=== PATIENT | male | born 1950 | race Caucasian/White ===

== ENCOUNTER → 2019-10-02 07:51 | Outpatient (BNVA) | payer MEDICARE, SELFPAY | PROVIDERS: Family Provider Nurse Practitioner Family; PCP Nurse Practitioner Family; Visit Provider Anesthesiology | DX: G89.29 Other chronic pain (principal); M51.36 Other intervertebral disc degeneration, lumbar region; M48.061 Spinal stenosis, lumbar region without neurogenic claudication; G99.2 Myelopathy in diseases classified elsewhere; M48.02 Spinal stenosis, cervical region; M19.011 Primary osteoarthritis, right shoulder; M19.012 Primary osteoarthritis, left shoulder; M79.651 Pain in right thigh; M79.652 Pain in left thigh; Z79.891 Long term (current) use of opiate analgesic | CPT/HCPCS: 99214 ==

== ENCOUNTER → 2019-11-28 07:51 | Outpatient (BNVA) | payer MEDICARE, SELFPAY | PROVIDERS: Family Provider Nurse Practitioner Family; PCP Nurse Practitioner Family; Visit Provider Anesthesiology | DX: G89.29 Other chronic pain (principal); M48.02 Spinal stenosis, cervical region; G99.2 Myelopathy in diseases classified elsewhere; M19.011 Primary osteoarthritis, right shoulder; M19.012 Primary osteoarthritis, left shoulder; M51.36 Other intervertebral disc degeneration, lumbar region; M48.061 Spinal stenosis, lumbar region without neurogenic claudication; F17.290 Nicotine dependence, other tobacco product, uncomplicated; Z79.891 Long term (current) use of opiate analgesic | CPT/HCPCS: 99214 ==

== ENCOUNTER → 2020-03-27 08:53 | Outpatient (BNVA) | payer MEDICARE, SELFPAY | PROVIDERS: Family Provider Nurse Practitioner Family; PCP Family Medicine; Visit Provider Nurse Practitioner | DX: G89.29 Other chronic pain (principal); M54.41 Lumbago with sciatica, right side; M51.36 Other intervertebral disc degeneration, lumbar region; M54.2 Cervicalgia; M54.9 Dorsalgia, unspecified; F17.290 Nicotine dependence, other tobacco product, uncomplicated; Z79.891 Long term (current) use of opiate analgesic; Z71.6 Tobacco abuse counseling | CPT/HCPCS: 99213 ==

== ENCOUNTER → 2020-05-29 08:50 | Outpatient (BNVA) | payer MEDICARE, SELFPAY | PROVIDERS: Family Provider Nurse Practitioner Family; PCP Family Medicine; Visit Provider Nurse Practitioner | DX: G89.29 Other chronic pain (principal); M48.02 Spinal stenosis, cervical region; M48.061 Spinal stenosis, lumbar region without neurogenic claudication; M51.36 Other intervertebral disc degeneration, lumbar region; M19.011 Primary osteoarthritis, right shoulder; M19.012 Primary osteoarthritis, left shoulder; M54.9 Dorsalgia, unspecified; G99.2 Myelopathy in diseases classified elsewhere; F17.290 Nicotine dependence, other tobacco product, uncomplicated; Z79.891 Long term (current) use of opiate analgesic | CPT/HCPCS: 99213; 99214 ==

== ENCOUNTER → 2020-06-27 09:59 | Outpatient (BNVA) | payer MEDICARE, SELFPAY | PROVIDERS: Family Provider Nurse Practitioner Family; PCP Family Medicine; Visit Provider Anesthesiology | DX: G89.29 Other chronic pain (principal); M48.02 Spinal stenosis, cervical region; G99.2 Myelopathy in diseases classified elsewhere; M51.36 Other intervertebral disc degeneration, lumbar region; M48.061 Spinal stenosis, lumbar region without neurogenic claudication; F17.290 Nicotine dependence, other tobacco product, uncomplicated; Z79.891 Long term (current) use of opiate analgesic; Z71.6 Tobacco abuse counseling | CPT/HCPCS: 99214 ==

== ENCOUNTER → 2020-08-04 10:26 | Outpatient (BNVA) | payer MEDICARE, SELFPAY | PROVIDERS: Family Provider Nurse Practitioner Family; PCP Family Medicine; Visit Provider Specialist | DX: M19.011 Primary osteoarthritis, right shoulder (principal); M19.012 Primary osteoarthritis, left shoulder | CPT/HCPCS: 73030 ==

== ENCOUNTER → 2020-08-27 09:11 | Outpatient (BNVA) | payer MEDICARE, SELFPAY | PROVIDERS: Family Provider Nurse Practitioner Family; PCP Family Medicine; Visit Provider Anesthesiology | DX: G89.29 Other chronic pain (principal); M48.02 Spinal stenosis, cervical region; M19.011 Primary osteoarthritis, right shoulder; M19.012 Primary osteoarthritis, left shoulder; M51.36 Other intervertebral disc degeneration, lumbar region; M48.061 Spinal stenosis, lumbar region without neurogenic claudication; M54.9 Dorsalgia, unspecified; G99.2 Myelopathy in diseases classified elsewhere; F17.290 Nicotine dependence, other tobacco product, uncomplicated; Z79.891 Long term (current) use of opiate analgesic; Z71.6 Tobacco abuse counseling | CPT/HCPCS: 99214 ==

== ENCOUNTER → 2020-10-24 09:15 | Outpatient (BNVA) | payer MEDICARE, SELFPAY | PROVIDERS: Family Provider Nurse Practitioner Family; PCP Family Medicine; Visit Provider Anesthesiology | DX: G89.29 Other chronic pain (principal); G99.2 Myelopathy in diseases classified elsewhere; M51.36 Other intervertebral disc degeneration, lumbar region; M48.061 Spinal stenosis, lumbar region without neurogenic claudication; M54.9 Dorsalgia, unspecified; M48.02 Spinal stenosis, cervical region; M19.011 Primary osteoarthritis, right shoulder; M19.012 Primary osteoarthritis, left shoulder; F17.290 Nicotine dependence, other tobacco product, uncomplicated; Z79.891 Long term (current) use of opiate analgesic | CPT/HCPCS: 99214 ==

== ENCOUNTER → 2020-12-19 10:23 | Outpatient (BNVA) | payer MEDICARE, SELFPAY | PROVIDERS: Family Provider Nurse Practitioner Family; PCP Family Medicine; Visit Provider Nurse Practitioner | DX: G89.29 Other chronic pain (principal); M51.36 Other intervertebral disc degeneration, lumbar region; M54.9 Dorsalgia, unspecified; M48.02 Spinal stenosis, cervical region; M19.011 Primary osteoarthritis, right shoulder; M19.012 Primary osteoarthritis, left shoulder; G99.2 Myelopathy in diseases classified elsewhere; F17.210 Nicotine dependence, cigarettes, uncomplicated; Z79.891 Long term (current) use of opiate analgesic; Z71.6 Tobacco abuse counseling | CPT/HCPCS: 99213; 99214 ==

== ENCOUNTER → 2021-02-26 08:37 | Outpatient (BNVA) | payer MEDICARE, SELFPAY | PROVIDERS: Family Provider Nurse Practitioner Family; PCP Family Medicine; Visit Provider Nurse Practitioner | DX: G89.29 Other chronic pain (principal); M51.36 Other intervertebral disc degeneration, lumbar region; M48.061 Spinal stenosis, lumbar region without neurogenic claudication; M48.02 Spinal stenosis, cervical region; M19.011 Primary osteoarthritis, right shoulder; M19.012 Primary osteoarthritis, left shoulder; G99.2 Myelopathy in diseases classified elsewhere; F17.210 Nicotine dependence, cigarettes, uncomplicated; Z79.891 Long term (current) use of opiate analgesic; Z71.6 Tobacco abuse counseling | CPT/HCPCS: 99213; 99214 ==

== ENCOUNTER → 2021-04-22 08:47 | Outpatient (BNVA) | payer MEDICARE, SELFPAY | PROVIDERS: Family Provider Nurse Practitioner Family; PCP Family Medicine; Visit Provider Nurse Practitioner | DX: G89.29 Other chronic pain (principal); M51.36 Other intervertebral disc degeneration, lumbar region; M48.061 Spinal stenosis, lumbar region without neurogenic claudication; M48.02 Spinal stenosis, cervical region; M19.011 Primary osteoarthritis, right shoulder; M19.012 Primary osteoarthritis, left shoulder; G99.2 Myelopathy in diseases classified elsewhere; F17.290 Nicotine dependence, other tobacco product, uncomplicated; Z79.891 Long term (current) use of opiate analgesic; Z71.6 Tobacco abuse counseling | CPT/HCPCS: 99213; 99214 ==

== ENCOUNTER → 2021-06-26 08:09 | Outpatient (BNVA) | payer MEDICARE, SELFPAY | PROVIDERS: Family Provider Nurse Practitioner Family; PCP Family Medicine; Visit Provider Anesthesiology | DX: Z02.89 Encounter for other administrative examinations (principal); G89.29 Other chronic pain; M51.36 Other intervertebral disc degeneration, lumbar region; M48.061 Spinal stenosis, lumbar region without neurogenic claudication; M48.02 Spinal stenosis, cervical region; G99.2 Myelopathy in diseases classified elsewhere; F17.210 Nicotine dependence, cigarettes, uncomplicated; Z79.891 Long term (current) use of opiate analgesic | CPT/HCPCS: 99214 ==

== ENCOUNTER → 2021-09-15 08:32 | Outpatient (BNVA) | payer MEDICARE, SELFPAY | PROVIDERS: Family Provider Nurse Practitioner Family; PCP Family Medicine; Visit Provider Anesthesiology | DX: G89.29 Other chronic pain (principal); M51.36 Other intervertebral disc degeneration, lumbar region; M48.02 Spinal stenosis, cervical region; G99.2 Myelopathy in diseases classified elsewhere; M48.061 Spinal stenosis, lumbar region without neurogenic claudication; F17.200 Nicotine dependence, unspecified, uncomplicated; Z79.891 Long term (current) use of opiate analgesic | CPT/HCPCS: 99214 ==

== ENCOUNTER 2021-10-19 12:47 | Outpatient (CLI) | payer MEDICARE, SELFPAY ==
--- NOTE | 2021-10-19 13:26 | XR_ITS ---
WS: [id number] XR cervical spine fl/ex [id number] REASON FOR EXAM: SPONDYLOLISTHESIS CERVICAL REGION FINDINGS: There is straightening of the normal lordosis of the cervical. No compression deformity or other focal cervical vertebral body lesion. Moderate narrowing of the C4-C5 with more severe narrowing of the C5-C6 and C6-C7 disc spaces with mo derate anterior osteophytes. 3 mm of anterior subluxation of C3 in relation to C4 in the neutral position. The subluxation may inc rease slightly with flexion. Mild degenerative changes in the facet joints C4-T1. XR/XR cervical spine fl/ex [id number] IMPRESSION: Multilevel degenerative spondylosis. The subluxation of C3 on C4 has developed since the MRI of the cervical spine 08/23/2017.
== END 2021-10-19 12:48 | disposition home or self-care (01) ==
PROVIDERS: PCP Family Medicine; Visit Provider Nurse Practitioner
DX: M43.12 Spondylolisthesis, cervical region (principal); S13.140A Subluxation of C3/C4 cervical vertebrae, initial encounter; X58.XXXA Exposure to other specified factors, initial encounter
CPT/HCPCS: 72040

== ENCOUNTER 2021-12-01 20:00 | Outpatient (CLI) | payer MEDICARE, SELFPAY | END 2021-12-01 20:01 | disposition home or self-care (01) | LOC: SLEEP 12-02 06:30 | PROVIDERS: PCP Family Medicine; Visit Provider Anesthesiology Pain Medicine | DX: G47.10 Hypersomnia, unspecified (principal); R06.83 Snoring; R53.83 Other fatigue | CPT/HCPCS: 95810 ==

== ENCOUNTER → 2022-03-04 09:54 | Outpatient (BNVA) | payer MEDICARE, SELFPAY | PROVIDERS: PCP Family Medicine; Visit Provider Specialist | DX: M19.011 Primary osteoarthritis, right shoulder (principal); M19.012 Primary osteoarthritis, left shoulder; Z71.89 Other specified counseling | CPT/HCPCS: 20610; J1100; J2795; J3301 ==

== ENCOUNTER → 2022-06-10 09:57 | Outpatient (BNVA) | payer MEDICARE, SELFPAY | PROVIDERS: PCP Family Medicine; Visit Provider Specialist | DX: M19.011 Primary osteoarthritis, right shoulder (principal); M19.012 Primary osteoarthritis, left shoulder | CPT/HCPCS: 20610; J1100; J2795; J3301 ==

== ENCOUNTER → 2022-06-22 16:01 | Outpatient (BNVA) | payer MEDICARE, SELFPAY | PROVIDERS: PCP Family Medicine; Visit Provider Internal Medicine | DX: R53.83 Other fatigue (principal); D64.9 Anemia, unspecified; I25.10 Atherosclerotic heart disease of native coronary artery without angina pectoris; E78.5 Hyperlipidemia, unspecified; J44.9 Chronic obstructive pulmonary disease, unspecified | CPT/HCPCS: 80053; 82607; 83550; 84443; 85025 ==

== ENCOUNTER 2022-08-24 08:14 | Outpatient (CLI) | payer MEDICARE, SELFPAY ==
[2022-08-24 08:37] VITALS: BMI 22.2
--- NOTE | 2022-08-24 08:39 | NMCV_ITS ---
NM kylie perf SPECT r/s* [id number] Owen Harris Age: 72 Gender: M : 1950 Exam Date: 08/24/2022 08:39 Ordering Phys: Ej Grajeda MD Technologist: JAYLAN Villasenor Exam Location: [facility] Indications: ATHEROSCLEROTIC HEART DISEASE OF [place] CORONARY ARTERY STRESS TEST Please see separate stress test report in [facility] for full findings IMAGE PROTOCOL Rest/Stress 1 Lexiscan Day Radiopharmaceutical Dose (mCi) Administration Site Administered by Rest: Tc-99m 10.8 IV JAYLAN Mccallum Sestamibi Stress:Tc-99m 32.3 IV JAYLAN Mccallum Sestamibi Rest: 24-Aug-2022 60 Discovery 630 Stress: 24-Aug-2022 30 Discovery 630 0.4mg Lexiscan. Images obtained in supine and prone position. SPECT RESULTS Technical Quality: Excellent Raw Data Analysis: Normal Image Corrections: No attenuation or motion correction applied Summed Stress Score: 2 Summed Rest Score: 5 Summed Difference Score: 0 PERFUSION FINDINGS Small sized perfusion abnormality of mild severity of apical lateral, apical anterior, apical inferior and apical ramos on rest images with improved tracer uptake in apical lateral and apical inferior ramos on stress images. This is suggestive of attenuation artifact. FUNCTIONAL RESULTS (calculated via Gated SPECT) Stress Image LV EF (%): 70 Stress EDV (mL):86 TID: 0.97 Stress ESV (mL):26 FUNCTIONAL FINDINGS: The left ventricle is normal in size. Transient Ischemia Dilatation of 0.97. The left ventricular ejection fraction is normal with a value of 70%. There is normal left ventricular wall thickening. Normal end-diastolic end-systolic volumes. IMPRESSIONS 1. Myocardial perfusion imaging is normal. Attenuation artifact noted in apical ramos. 2. Overall left ventricular systolic function is normal without regional wall motion abnormalities, LVEF=70%. 3. EKG portion of the study will be reported separately. 4. Scan indicates low risk for cardiac events. Alaina De La Cruz MD (Electronically Signed) Final Date: 24 August 2022 16:13 S
--- NOTE | 2022-08-24 08:39 | ECG_ITS ---
[facility] Test Date: 2022-08-24 Pat Name: Owen Harrsi Department: Room: Gender: Male Guest Experience Specialist: : 1950 Requested By: Ej Grajeda Order Number: [id number] Lopez MD: Alaina De La Cruz M.D. Interpretive Statements NAME OF STUDY: LEXISCAN SESTAMIBI STRESS TEST INDICATION: Dyspnea PROCEDURE: At the baseline, the blood pressure was 127/81 mmHg with a heart rate of 60 bpm. The electrocardiogram showed sinus rhythm, rightward axis. Nonspecific ST depression in inferior leads. The Lexiscan was infused over a period of 20 seconds. A total of 0.4 milligrams of Lexiscan was infused. The stress phase was continued for a total of 5 minutes. Heart rate at the end of the stress phase was 76 bpm with a blood pressure of 120/76 mmHg. The EKG at the peak infusion revealed no significant ST-T wave changes interpretation limited by artifact at peak exercise. The study was terminated due to protocol completion. Sestamibi was injected 20 seconds after the Lexiscan infusion. Blood pressure at the end of the recovery phase was 108/73 mmHg with a heart rate of 78 beats per minute. CONCLUSION: 1. No significant EKG changes with the LexiScan infusion. 2. No LexiScan induced chest pain or cardiac arrhythmia. 3. Normal blood pressure and heart rate response. 4. Sestamibi/sestamibi perfusion scan pending; see separate report. Electronically Signed On 08-24-2022 16:33:55 FRAMER by Alaina De La Cruz M.D. [id number]
[2022-08-24 10:00] VITALS: BP 108/73; PULSE 77
[2022-08-24] MEDS: regadenoson 0.4 Mg/5 ml Syringe IVP (10:01)
== END 2022-08-24 08:15 | disposition home or self-care (01) ==
PROVIDERS: PCP Family Medicine; Visit Provider Internal Medicine
DX: I25.10 Atherosclerotic heart disease of native coronary artery without angina pectoris (principal)
CPT/HCPCS: 36415; 78452; 93017; 96374; A9500; J2785

== ENCOUNTER 2022-09-01 16:26 | Emergency (ER) | payer MEDICARE, SELFPAY ==
[2022-09-01] VITALS (9 sets, daily range): BP systolic 94–115; BP diastolic 63–76; PULSE 76–91; RESP 16–20; TEMP 37; O2SAT 86–94
--- NOTE | 2022-09-01 16:55 | ED_ITS ---
Documented by User: Kevin Riggins MD 09/15/22 01:29 HPI - SOB/Dyspnea General: Chief Complaint: Shortness of Breath/Dyspnea Stated Complaint: flu a+, low ox Time Seen by Provider: 09/01/22 16:55 History of Present Illness: HPI Narrative: Mr. Harris is a 72-year-old gentleman with significant past medical history of emphysema presenting to the emergency department due to shortness of breath and generalized illness. Reports approximately 5 days of illness that was subacute in onset. Fevers, body aches, chills, weakness, cough, shortness of breath. Presented to clinic today and was tested positive for flu and referred to the emergency department due to low oxygen saturation. Patient hypoxemic on room air, very infrequent use of oxygen at home with no baseline oxygen requirement. Density symptoms is moderate to severe and worse with exertion. No other specific changes in health, exacerbating, or alleviating factors identified. Onset (ago): day(s) Timing: progressively worsening Severity: moderate Exacerbating factors: exertion, movement and coughing Relieving factors: nothing Known history of: COPD Associated symptoms: Reports cough, myalgias and other Review of Systems General: Reports: 10 or more systems reviewed and unremarkable except in HPI and below PFSH ED PFSH: Medical History Abdominal aortic aneurysm (AAA) Chronic neck pain COPD (chronic obstructive pulmonary disease) Coronary artery disease DDD (degenerative disc disease), lumbar Dyslipidemia [facility] (current) use of opiate analgesic Lumbar stenosis without neurogenic claudication Opioid contract exists Pyriformis syndrome Smoker Stenosis of cervical spine with myelopathy Surgical History Hx of appendectomy 2000 Hx of heart artery stent total of 3 maybe in 2004 Family History Denies family history of Diabetes CAD (coronary artery disease) Clotting disorder Dementia Hyperlipidemia Psychiatric illness Chronic kidney disease (CKD) Suicide Anesthesia complication Bleeding disorder Family history of premature coronary artery disease Lung disease Cancer Hypertension Stroke Social History Smoking and tobacco status: current every day smoker pipe Years smoked pipe: 5 Pipe Details: tobacco Alcohol intake: current Alcohol intake frequency: holidays/special occasions only Household members: spouse Marital status: service: Yes branch: [employer] Current occupational status: retired History of recent travel: No Physical Exam Const: COMMON NORMALS: alert GENERAL APPEARANCE: cooperative, well developed and ill appearing (Somewhat) HENMT: COMMON NORMALS: normocephalic and atraumatic HEAD & SCALP: normocephalic and atraumatic Eye: COMMON NORMALS: conjunctivae normal CONJUNCTIVA: Yes conjunctivae normal SCLERA: sclerae normal Neck/C-Spine: COMMON NORMALS: supple GENERAL: Yes trachea midline Resp: COMMON NORMALS: normal respiratory effort EFFORT & INSPECTION: Yes tachypneic AUSCULTATION: crackles Laterality: right and rhonchi right lower Cardio: COMMON NORMALS: regular rate and regular rhythm RATE: regular rate RHYTHM: regular rhythm GI: COMMON NORMALS: Soft to palpation PALPATION: Yes Soft to palpation and No Tenderness to palpation present (GI) Extremity: GENERAL: Yes normal exam except as noted and No edema Neuro: COMMON NORMALS: moves all extremities SENSORIUM/ORIENTATION: Yes alert and No Orientation impaired Psych: COMMON NORMALS: mental status grossly normal and Normal thought process present THOUGHT PROCESS: Normal thought process present Course Vital Signs: Vital signs: Vital Signs Temperature 98.6 F 09/01/22 16:48 Pulse Rate 90 09/01/22 19:43 Respiratory Rate 16 09/01/22 19:43 Blood Pressure 94/69 09/01/22 19:43 Pulse Oximetry 92 09/01/22 19:43 Oxygen Delivery Me thod 09/01/22 19:18 Oxygen Flow Rate 4 09/01/22 19:18 MDM - SOB/Dyspnea Medical Decision Making 72-year-old gentleman presenting with respiratory illness for approximately 5 days and oxygen requirement greater than baseline though he does require oxygen at times at home. Exam as above. EKG notable for sinus rhythm with nonspecific ST segment abnormalities, no STEMI. Labs with no leukocytosis, normal hemoglobin. No significant metabolic derangements. Influenza is positive. Chest x-ray with no lobar consolidation or pneumothorax. Patient treated with RT treatment and steroids. Upon reassessment improvement though additional RT treatment ordered. Handed off to Dr. Deleon pending reassessment after repeat RT treatment for disposition. Patient presents here with influenza likely worsening his COPD he wears 2 L at baseline he is requiring 3 here I did offer admission he states he feels much improved would like to go home I informed him he likely needs to turn his oxygen up to 3 we will start him on steroids he is out of window for Tamiflu as his symptoms been going on for 4 days he is return if worsening he understands agrees to plan. Medical Records I reviewed the patient's medical records. Lab Data I reviewed the patient's lab results. 09/01/22 17:18 09/01/22 17:18 Labs/Radiology: Radiology Impressions Chest X-Ray 09/01/22 17:03 IMPRESSION: No acute findings. Laboratory Results WBC 4.9 10^3/uL (4.0-10.0) 09/01/22 17:18 RBC 4.77 10^6/uL (4.1-5.3) 09/01/22 17:18 Hgb 15.0 g/dL (11.7-16.6) 09/01/22 17:18 Hct 45.2 % (42.0-52.0) 09/01/22 17:18 MCV 94.8 fl (80-94) H 09/01/22 17:18 MCH 31.4 pg (28.0-34.0) 09/01/22 17:18 MCHC 33.2 g/dL (30.0-36.0) 09/01/22 17:18 RDW 14.8 % (12.1-15.1) 09/01/22 17:18 Plt Count 211 10^3/cmm (130-400) 09/01/22 17:18 MPV 10.4 fL (7.4-10.4) 09/01/22 17:18 Neut % (Auto) 73.2 % 09/01/22 17:18 Lymph % (Auto) 13.2 % 09/01/22 17:18 [place] % (Auto) 10.4 % 09/01/22 17:18 Eos % (Auto) 2.4 % 09/01/22 17:18 Baso % (Auto) 0.6 % 09/01/22 17:18 Neut # (Auto) 3.60 10^3/uL (1.8-7.7) 09/01/22 17:18 Lymph # (Auto) 0.7 10^3/uL (0.8-4.8) L 09/01/22 17:18 [place] # (Auto) 0.5 10^3/uL (0.2-0.9) 09/01/22 17:18 Eos # (Auto) 0.1 10^3/uL (0.0-0.8) 09/01/22 17:18 Baso # (Auto) 0.0 10^3/uL (0.0-0.1) 09/01/22 17:18 Nucleated RBC % (auto) 0 % 09/01/22 17:18 Nucleated RBCs # 0.0 /100WBC 09/01/22 17:18 Sodium 138 mmol/L (136-145) 09/01/22 17:18 Potassium 4.2 mmol/L (3.5-5.1) 09/01/22 17:18 Chloride 102 mmol/L (98-107) 09/01/22 17:18 Carbon Dioxide 23 mmol/L (22-29) 09/01/22 17:18 Anion Gap 17.2 (5-19) 09/01/22 17:18 BUN 21 mg/dL (8-23) 09/01/22 17:18 Creatinine 0.7 mg/dL (0.7-1.2) 09/01/22 17:18 GFR Calculation 111.5 mL/min (90-130) 09/01/22 17:18 Glucose 99 mg/dL (65-115) 09/01/22 17:18 Calculated Osmolality 289 mOsm/kg (285-295) 09/01/22 17:18 Lactic Acid 1.0 mmol/L (0.5-2.2) 09/01/22 17:18 Calcium 8.8 mg/dL (8.5-10.5) 09/01/22 17:18 Total Bilirubin 0.2 mg/dL (0.15-1.2) 09/01/22 17:18 AST 35 U/L (0-40) 09/01/22 17:18 ALT < 5 U/L (0-41) 09/01/22 17:18 Alkaline Phosphatase 5 U/L (40-130) L 09/01/22 17:18 Troponin T Baseline 10 ng/L (0-15) 09/01/22 17:18 Troponin T 120 Minute 8.98 ng/L (0-15) 09/01/22 19:25 Delta Troponin T -1.02 ABS# (0-10) L 09/01/22 19:25 C-Reactive Protein 44.0 mg/L (0.0-4.9) H 09/01/22 17:18 NT-Pro-B Natriuret Pep 158 pg/mL (0-125) H 09/01/22 17:18 Total Protein 6.9 g/dL (6.6-8.7) 09/01/22 17:18 Albumin 0.2 g/dL (3.5-5.2) L 09/01/22 17:18 Globulin 6.7 g/dL (1.3-4.6) H 09/01/22 17:18 Procalcitonin 0.17 ng/mL (0-0.5) 09/01/22 17:18 Influenza Type A Ag Positive (Negative) H 09/01/22 19:04 Influenza Type B Ag Negative (Negative) 09/01/22 19:04 SARS-CoV-2 Ag (Rapid) negative (Negative) 09/01/22 19:04 Discharge Plan Discharge Patient Disposition: Home Clinical Impression: COPD (chronic obstructive pulmonary disease), Influenza Condition: Stable Prescriptions: New prednisone 50 mg tablet 50 mg PO DAILY Qty: 5 0RF No Action aspirin 325 mg tablet 325 mg PO DAILY ranitidine HCl 150 mg tablet PO fluticasone propion-salmeterol [Advair Diskus] 250-50 mcg/dose blister with device 1 inh INHALATION BID lisinopril 2.5 mg tablet 2.5 mg PO DAILY clopidogrel [Plavix] 75 mg tablet 75 mg PO DAILY famotidine 40 mg tablet 40 mg PO DAILY hydrocodone-acetaminophen 10-325 mg tablet 1 tab PO QID PRN (Reason: pain) 30 Days Qty: 120 0RF Rx Instructions: fill on or after 09/15/21 hydrocodone-acetaminophen 10-325 mg tablet 1 tab PO QID 30 Days Qty: 120 0RF Rx Instructions: fill on or after 10/15/21 baclofen 10 mg tablet 10 mg PO QID PRN (Reason: spasms) Qty: 120 1RF Discharge Orders: Discharge ED (Routine); Ordered 09/01/22 Ordered By: Yun Deleon Referrals: Morales Street DO [Primary Care Provider] - 1-3 days Discharge Diet: Advance as tolerated Discharge Activity: Resume usual activity Patient Instructions: Influenza (ED) Coding Level of Care Code ED Order Taker for Chg Fwd Exam Comprehensive Documented by User: Yun Deleon MD 09/01/22 19:47 HPI - SOB/Dyspnea General: Chief Complaint: Shortness of Breath/Dyspnea Stated Complaint: flu a+, low ox Time Seen by Provider: 09/01/22 16:55 PFSH ED PFSH: Medical History Abdominal aortic aneurysm (AAA) Chronic neck pain COPD (chronic obstructive pulmonary disease) Coronary artery disease DDD (degenerative disc disease), lumbar Dyslipidemia [facility] (current) use of opiate analgesic Lumbar stenosis without neurogenic claudication Opioid contract exists Pyriformis syndrome Smoker Stenosis of cervical spine with myelopathy Surgical History Hx of appendectomy 2000 Hx of heart artery stent total of 3 maybe in 2004 Family History Denies family history of Diabetes CAD (coronary artery disease) Clotting disorder Dementia Hyperlipidemia Psychiatric illness Chronic kidney disease (CKD) Suicide Anesthesia complication Bleeding disorder Family history of premature coronary artery disease Lung disease Cancer Hypertension Stroke Social History Smoking and tobacco status: current every day smoker pipe Years smoked pipe: 5 Pipe Details: tobacco Alcohol intake: current Alcohol intake frequency: holidays/special occasions only Household members: spouse Marital status: service: Yes branch: [employer] Current occupational status: retired History of recent travel: No Course Vital Signs: Vital signs: Vital Signs Temperature 98.6 F 09/01/22 16:48 Pulse Rate 90 09/01/22 19:43 Respiratory Rate 16 09/01/22 19:43 Blood Pressure 94/69 09/01/22 19:43 Pulse Oximetry 92 09/01/22 19:43 Oxygen Delivery Me thod 09/01/22 19:18 Oxygen Flow Rate 4 09/01/22 19:18 MDM - SOB/Dyspnea Medical Decision Making Patient presents here with influenza likely worsening his COPD he wears 2 L at baseline he is requiring 3 here I did offer admission he states he feels much improved would like to go home I informed him he likely needs to turn his oxygen up to 3 we will start him on steroids he is out of window for Tamiflu as his symptoms been going on for 4 days he is return if worsening he understands agrees to plan. Lab Data 09/01/22 17:18 09/01/22 17:18 Labs/Radiology: Radiology Impressions Chest X-Ray 09/01/22 17:03
--- NOTE | 2022-09-01 17:03 | ECG_ITS ---
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 Measurements Intervals [place] Rate: 80 P: 18 DC: 134 QRS: 75 QRSD: 98 T: 58 QT: 357 QTc: 412 Interpretive Statements SINUS RHYTHM Compared to ECG 12/31/2016 10:12:12 No significant changes Electronically Signed On 09-02-2022 9:07:29 FX ARTIST by Alaina De La Cruz M.D. [email or web address]
--- NOTE | 2022-09-01 17:03 | XRR_ITS ---
PROCEDURE INFORMATION: Exam: XR Chest Exam date and time: 09/01/2022 5:09 PM Age: 72 years old Clinical indication: Shortness of breath; Additional info: SOB TECHNIQUE: Imaging protocol: Radiologic exam of the chest. Views: 1 view. COMPARISON: CR XR chest 2V* [id number] 12/31/2016 10:36 AM FINDINGS: Lungs: Unremarkable. No consolidation. Pleural spaces: Unremarkable. No pleural effusion. No pneumothorax. Heart/Mediastinum: Unremarkable. No cardiomegaly. Bones/joints: Unremarkable. XR/XR chest 1V portable [id number] IMPRESSION: No acute findings.
[2022-09-01] MEDS: ipratropium-albuterol 3 mL Neb INHALATION (17:13)
[2022-09-01 17:32] LABS: Basophils % 0.6 %; Eosinophils # 0.1 10^3/uL (0.0-0.8); Eosinophils % 2.4 %; Hematocrit 45.2 % (42.0-52.0); Lymphocytes # 0.7 10^3/uL (0.8-4.8); Lymphocytes % 13.2 %; Mean Corpuscular HGB Conc 33.2 g/dL (30.0-36.0); Mean Corpuscular Hemoglobin 31.4 pg (28.0-34.0); Mean Corpuscular Volume 94.8 fl (80-94); Mean Platelet Volume 10.4 fL (7.4-10.4); Monocytes # 0.5 10^3/uL (0.2-0.9); Monocytes % 10.4 %; Neutrophils % 73.2 %; Nucleated Red Blood Cells % 0 %; Platelet Count 211 10^3/cmm (130-400); Red Blood Count 4.77 10^6/uL (4.1-5.3); Red Cell Distribution Width 14.8 % (12.1-15.1); White Blood Count 4.9 10^3/uL (4.0-10.0)
[2022-09-01] MEDS: albuterol 2.5 mg/3 mL Neb INHALATION (17:57)
[2022-09-01 17:58] LABS: Alanine Aminotransferase < 5 U/L (0-41); Albumin Level 0.2 g/dL (3.5-5.2); Alkaline Phosphatase 5 U/L (40-130); Aspartate Amino Transferase 35 U/L (0-40); Blood Urea Nitrogen 21 mg/dL (8-23); Calcium 8.8 mg/dL (8.5-10.5); Carbon Dioxide 23 mmol/L (22-29); Globulin 6.7 g/dL (1.3-4.6); Glomerular Filtration Rate 111.5 mL/min (90-130); Glucose 99 mg/dL (65-115); Total Bilirubin 0.2 mg/dL (0.15-1.2); Total Protein 6.9 g/dL (6.6-8.7)
[2022-09-01 18:00] LABS: Troponin(5th) Baseline 10 ng/L (0-15)
[2022-09-01 18:24] LABS: Anion Gap 17.2 (5-19); Chloride 102 mmol/L (98-107); NT Pro B Type Natriuretic Pept 158 pg/mL (0-125); Osmolality Calculated 289 mOsm/kg (285-295); Potassium 4.2 mmol/L (3.5-5.1); Sodium 138 mmol/L (136-145)
--- NOTE | 2022-09-01 19:05 | ECG_ITS ---
[facility] Test Date: 2022-09-01 Pat Name: Owen Harris Department: Room: Gender: Male Relief Mate: : 1950 Requested By: Kevin Riggins Order Number: [id number] Jessica MD: Alaina De La Cruz M.D. Measurements Intervals [place] Rate: 96 P: 20 OK: 154 QRS: 56 QRSD: 93 T: 53 QT: 347 QTc: 439 Interpretive Statements SINUS RHYTHM Compared to ECG 09/01/2022 17:18:16 No significant changes Electronically Signed On 09-02-2022 9:19:25 ACCOUNT MANAGER by Alaina De La Cruz M.D. [email or web address]
[2022-09-01 19:25] LABS: Influenza A by IFA Positive (Negative); Influenza B by IFA Negative (Negative); SARS Covid-2 Antigen negative (Negative)
[2022-09-01 20:11] LABS: Procalcitonin 0.17 ng/mL (0-0.5)
[2022-09-01 21:11] LABS: Troponin 5 2HR 8.98 ng/L (0-15)
[2022-09-01 21:25] LABS: Troponin 5 2HR Delta -1.02 ABS# (0-10)
== END 2022-09-01 19:44 | disposition home or self-care (01) ==
PROVIDERS: Emergency Medicine; Emergency Provider Emergency Medicine; PCP Family Medicine
DX: J44.9 Chronic obstructive pulmonary disease, unspecified (principal); J11.1 Influenza due to unidentified influenza virus with other respiratory manifestations; Z79.82 Long term (current) use of aspirin; Z79.02 Long term (current) use of antithrombotics/antiplatelets; Z20.822 Contact with and (suspected) exposure to COVID-19; F17.210 Nicotine dependence, cigarettes, uncomplicated; I25.10 Atherosclerotic heart disease of native coronary artery without angina pectoris; E78.5 Hyperlipidemia, unspecified
CPT/HCPCS: 36415; 71045; 80053; 83605; 83880; 84145; 84484; 85025; 86140; 87040; 87426; 87804; 93005; 94640; 96374; 99285; J2930; J7613

== ENCOUNTER → 2022-09-09 09:50 | Outpatient (BNVA) | payer MEDICARE, SELFPAY | PROVIDERS: PCP Family Medicine; Visit Provider Specialist | DX: M19.011 Primary osteoarthritis, right shoulder (principal); M19.012 Primary osteoarthritis, left shoulder; Z71.89 Other specified counseling | CPT/HCPCS: 20610; J1100; J2795; J3301 ==

== ENCOUNTER → 2022-12-23 10:46 | Outpatient (BNVA) | payer MEDICARE, SELFPAY | PROVIDERS: PCP Family Medicine; Visit Provider Specialist | DX: M19.011 Primary osteoarthritis, right shoulder (principal); M19.012 Primary osteoarthritis, left shoulder | CPT/HCPCS: 20610; J1100; J2795; J3301 ==

== ENCOUNTER → 2023-03-24 09:52 | Outpatient (BNVA) | payer MEDICARE, SELFPAY | PROVIDERS: PCP Family Medicine; Visit Provider Specialist | DX: M19.011 Primary osteoarthritis, right shoulder (principal); M19.012 Primary osteoarthritis, left shoulder | CPT/HCPCS: 20610; J1100; J2795; J3301 ==

== ENCOUNTER → 2023-04-07 10:40 | Outpatient (BNVA) | payer MEDICARE, SELFPAY | PROVIDERS: PCP Family Medicine; Visit Provider Internal Medicine Cardiovascular Disease | DX: I25.10 Atherosclerotic heart disease of native coronary artery without angina pectoris (principal); E78.5 Hyperlipidemia, unspecified; J44.9 Chronic obstructive pulmonary disease, unspecified; M48.061 Spinal stenosis, lumbar region without neurogenic claudication; I71.40 Abdominal aortic aneurysm, without rupture, unspecified; F17.290 Nicotine dependence, other tobacco product, uncomplicated | CPT/HCPCS: 99204 ==